=== PATIENT | female | born 1945 | race Caucasian/White ===

== ENCOUNTER → 2016-08-17 | Outpatient (CLI) | payer MEDICARE, OTHER ==
--- NOTE | 2016-08-17 15:56 | CARD ---
APPROVED REPORT EXAM: Two-dimensional and M-mode echocardiogram with Doppler and color Doppler. Other Information Quality : ExcellentHR: 60bpm Rhythm : NSR INDICATION Valvular heart disease RISK FACTORS Hypertension 2D DIMENSIONS RVDd1.7 (2.9-3.5cm)Left Atrium(2D)3.3 (1.6-4.0cm) IVSd1.0 (0.7-1.1cm)Aortic Root(2D)2.7 (2.0-3.7cm) LVDd3.7 (3.9-5.9cm)LVOT Diameter2.1 (1.8-2.4cm) PWd1.0 (0.7-1.1cm)LVDs2.7 (2.5-4.0cm) FS (%) 27.0 %SV31.7 ml LVEF(%)53.4 (>50%) Aortic Valve AoV Peak Jose.318.5cm/sAoV VTI76.1cm AO Peak GR.40.6mmHgLVOT Peak Jose.99.7cm/s AO Mean GR.22mmHgAVA (VMAX)1.05cm2 Mitral Valve MV E Smhbtzuy69.8cm/sMV E Peak Gr.2mmHg MV DECEL [id number] A Fuhnkjeu65.6cm/s MV E Mean Gr.1mmHgE/A Ratio0.7 Pulmonary Valve PV Peak Glqhzymk65.1cm/s Tricuspid Valve TR P. Mhchaozf081ad/sTR Peak Gr.28mmHg Pulmonary Vein S1 Myovyurh70.0cm/sD2 Xlgfcplz43.0cm/s PVa zzvebyup04jpfw LEFT VENTRICLE The left ventricle is normal size. There is normal left ventricular wall thickness. The left ventricu lar systolic function is normal and the ejection fraction is low normal. The Ejection Fraction is 50- 55%. There is normal LV segmental wall motion. Transmitral Doppler flow pattern is Grade I-abnormal r elaxation pattern. RIGHT VENTRICLE The right ventricle is normal size. There is normal right ventricular wall thickness. The right ventr icular systolic function is normal. ATRIA The left atrium is mildly dilated. The right atrium size is normal. The interatrial septum is intact with no evidence for an atrial septal defect or patent foramen ovale as noted on 2-D or Doppler imagi ng. AORTIC VALVE The aortic valve is moderately sclerotic. Doppler and Color Flow revealed no significant aortic regur gitation. There is moderate valvular aortic stenosis. Calculated aortic valve area is 1.05 cm2 with m aximum pressure gradient of 40.57 mmHg and mean pressure gradient of 22.46 mmHg. MITRAL VALVE Mitral annular calcification is mild. There is no evidence of mitral valve prolapse. There is no mitr al valve stenosis. Doppler and Color Flow revealed trace mitral regurgitation. TRICUSPID VALVE The tricuspid valve is normal in structure and function. Doppler and Color Flow revealed moderate tri cuspid regurgitation. The pulmonary artery systolic pressure is estimated at 33 mmHg. There is mild p ulmonary hypertension. There is no tricuspid valve stenosis. PULMONIC VALVE The pulmonary valve is normal in structure and function. Doppler and Color Flow revealed mild pulmoni c valvular regurgitation. There is no pulmonic valvular stenosis. GREAT VESSELS The aortic root is normal in size. The ascending aorta is normal in size. The IVC is normal in size a nd collapses >50% with inspiration. PERICARDIAL EFFUSION There is no evidence of significant pericardial effusion. Critical Notification Critical Value: No <Conclusion> The left ventricular systolic function is normal and the ejection fraction is low normal. The Ejectio n Fraction is 50-55%. There is normal LV segmental wall motion. There is moderate valvular aortic stenosis. Calculated aortic valve area is 1.05 cm2 with maximum pr essure gradient of 40.57 mmHg and mean pressure gradient of 22.46 mmHg. Doppler and Color Flow revealed moderate tricuspid regurgitation. The pulmonary artery systolic press ure is estimated at 33 mmHg. There is mild pulmonary hypertension.
== END | disposition home or self-care (01) ==
LOC: ECHO 12:42
PROVIDERS: ATTEND Internal Medicine Cardiovascular Disease
DX: I35.0 Nonrheumatic aortic (valve) stenosis (principal); I38 Endocarditis, valve unspecified; I35.8 Other nonrheumatic aortic valve disorders; I34.8 Other nonrheumatic mitral valve disorders; I34.0 Nonrheumatic mitral (valve) insufficiency; I07.1 Rheumatic tricuspid insufficiency; I27.2 Other secondary pulmonary hypertension; I37.1 Nonrheumatic pulmonary valve insufficiency
CPT/HCPCS: 93306

== ENCOUNTER → 2018-03-28 | Outpatient (CLI) | payer MEDICARE, OTHER ==
--- NOTE | 2018-03-28 16:16 | CARD ---
MR#: [id number] Date of Study: 03/28/2018 Ordering Physician: SUDHAKAR NORTON, Referring Physician: SUDHAKAR NORTON, Tech: AURORA Royal APPROVED REPORT EXAM: Two-dimensional and M-mode echocardiogram with Doppler and color Doppler. Other Information Quality : AverageHR: 63bpm INDICATION Aortic Stenosis RISK FACTORS Hypertension 2D DIMENSIONS Left Atrium(2D)3.1 (1.6-4.0cm)IVSd1.0 (0.7-1.1cm) Aortic Root(2D)2.7 (2.0-3.7cm)LVDd4.5 (3.9-5.9cm) LVOT Diameter1.8 (1.8-2.4cm)PWd0.9 (0.7-1.1cm) LVDs2.8 (2.5-4.0cm)FS (%) 38.0 % SV61.7 ml Aortic Valve AoV Peak Jose.285.3cm/sAoV VTI73.9cm AO Peak GR.32.6mmHgLVOT Peak Jose.67.7cm/s LVOT VTI 18.83cmAO Mean GR.21mmHg JUSTIN (VMAX)0.02tk3EJT (VTI)0.63cm2 Mitral Valve MV E Tfeervqf95.5cm/sMV DECEL BTPR510lg MV A Jjveccdg84.2cm/sMV BZL87yy E/A Ratio0.8MVA (PHT)4.52cm2 TDI E/Lateral E'9.5E/Medial E'13.9 Pulmonary Valve PV Peak Xmfvnylo00.2cm/sPV Peak Grad.2mmHg Tricuspid Valve TR P. Rcmykxkz870rp/sTR Peak Gr.18mmHg Pulmonary Vein S1 Tdbabqkh68.3cm/sD2 Juyzsxot16.2cm/s LEFT VENTRICLE The left ventricle is normal size. There is normal left ventricular wall thickness. The left ventricu lar systolic function is normal and the ejection fraction is within normal range. The Ejection Fracti on is 55-60%. There is normal LV segmental wall motion. The left ventricular diastolic function and f illing is normal for age. RIGHT VENTRICLE The right ventricle is normal size. The right ventricular systolic function is normal. ATRIA The left atrium size is normal. The right atrium size is normal. The interatrial septum is intact wit h no evidence for an atrial septal defect or patent foramen ovale as noted on 2-D or Doppler imaging. AORTIC VALVE The aortic valve is moderately thickened. Doppler and Color Flow revealed no significant aortic regur gitation. There is no significant aortic valve stenosis. There is moderate valvular aortic stenosis. Aortic valve area with a maximum pressure gradient of 36.8 mmHg and mean pressure gradient of 20.8 mm Hg. There is no aortic valvular vegetation. MITRAL VALVE The mitral valve is moderately thickened. There is no evidence of mitral valve prolapse. There is no mitral valve stenosis. Doppler and Color Flow revealed mild mitral valve regurgitation. TRICUSPID VALVE The tricuspid valve leaflets are thickened , but open well. Doppler and Color Flow revealed mild tric uspid regurgitation. There is no tricuspid valve prolapse or vegetation. There is no tricuspid valve stenosis. PULMONIC VALVE The pulmonic valve is not well visualized. Doppler and Color Flow revealed no pulmonic valvular regur gitation. There is no pulmonic valvular stenosis. GREAT VESSELS The aortic root is normal in size. The IVC is normal in size and collapses >50% with inspiration. PERICARDIAL EFFUSION There is no pleural effusion. There is no evidence of significant pericardial effusion. Critical Notification Critical Value: No <Conclusion> The left ventricle is normal size. The left ventricular systolic function is normal and the ejection fraction is within normal range. The Ejection Fraction is 55-60%. The aortic valve is moderately thickened. There is moderate valvular aortic stenosis. Aortic valve area with a maximum pressure gradient of 36.8 mmHg and mean pressure gradient of 20.8 mm Hg. Doppler and Color Flow revealed no significant aortic regurgitation. Doppler and Color Flow revealed mild mitral valve regurgitation. Doppler and Color Flow revealed mild tricuspid regurgitation. Signed by : Sudhakar Norton MD Electronically Approved : 03/28/2018 16:15:52
== END | disposition home or self-care (01) ==
LOC: ECHO 13:28
PROVIDERS: ATTEND Internal Medicine Cardiovascular Disease
DX: I08.3 Combined rheumatic disorders of mitral, aortic and tricuspid valves (principal)
CPT/HCPCS: 93306

== ENCOUNTER 2018-10-20 18:48 | Inpatient (IN) | payer MEDICARE, OTHER ==
[~2018-10-20] VITALS: Ht 160 cm; Wt 55.4 kg
--- NOTE | 2018-10-20 19:50 | PHYS DOC ---
Past Medical History Past Medical History: Cancer (breast cancer in 2000), Hypertension Alcohol Use: None Drug Use: None Adult General Chief Complaint Chief Complaint: NEURO SYMPTOMS/DEFICITS HPI HPI Patient is a 72 year old female who presents with left-sided facial weakness that began yesterday at approximately 1700. Patient was swishing mouthwash and noticed that was leaking out of the left side of her mouth. She also notes a left-sided occipital headache. Not worst headache of life. No trauma. She is able to swallow. No chest pain or palpitations. Nothing seems to make the symptoms better or worse. She also notes that there is tearing of her left eye as well. No visual changes.[] Review of Systems Review of Systems Constitutional: Denies fever or chills [] Eyes: Denies change in visual acuity, redness, or eye pain [] HENT: Denies nasal congestion or sore throat [] Respiratory: Denies cough or shortness of breath [] Cardiovascular: No chest pain or palpitations[] GI: Denies abdominal pain, nausea, vomiting, bloody stools or diarrhea [] : Denies dysuria or hematuria [] Musculoskeletal: Denies back pain or joint pain [] Integument: Denies rash or skin lesions [] Neurologic: see HPI [] Endocrine: Denies polyuria or polydipsia [] All other systems were reviewed and found to be within normal limits, except as documented in this note. Current Medications Current Medications Current Medications Medications (Trade) Dose Ordered Sig/Evan Start Time Stop Time Status Last Admin Dose Admin Aspirin (Aspirin) 300 mg 1X STAT 10/20/18 20:30 10/20/18 20:32 DC 10/20/18 20:47 300 MG Allergies Allergies Allergies Coded Allergies Type Severity Reaction Last Updated Verified shellfish derived Allergy Unknown 10/20/18 Yes Physical Exam Physical Exam Constitutional: Well developed, well nourished, no acute distress, non-toxic appearance. [] HENT: Normocephalic, atraumatic, bilateral external ears normal, oropharynx moist, no oral exudates, nose normal. [] Eyes: PERRLA, EOMI, conjunctiva normal, no discharge. [] Neck: Normal range of motion, no tenderness, supple, no stridor. [] Cardiovascular:Heart rate regular rhythm, no murmur [] Lungs & Thorax: Bilateral breath sounds clear to auscultation [] Abdomen: Bowel sounds normal, soft, no tenderness, no masses, no pulsatile masses. [] Skin: Warm, dry, no erythema, no rash. [] Back: No tenderness, no CVA tenderness. [] Extremities: No tenderness, no cyanosis, no clubbing, ROM intact, no edema. [] Neurologic: Alert and oriented X 3, patient has left-sided facial weakness with the forehead being spared, NIHSS is 3, 2 points for lower face asymmetry and 1 point for decreased sensation in the L face[] Psychologic: Affect normal, judgement normal, mood normal. [] Current Patient Data Vital Signs Vital Signs Date Time Temp Pulse Resp B/P (MAP) Pulse Ox O2 Delivery O2 Flow Rate FiO2 10/20/18 19:48 74 16 96 10/20/18 19:35 97.7 191/79 (116) Room Air 97.7 Lab Values Laboratory Tests Test 10/20/18 19:40 White Blood Count 10.5 x10^3/uL (4.0-11.0) Red Blood Count 4.66 x10^6/uL (3.50-5.40) Hemoglobin 13.2 g/dL (12.0-15.5) Hematocrit 40.1 % (36.0-47.0) Mean Corpuscular Volume 86 fL (79-100) Mean Corpuscular Hemoglobin 28 pg (25-35) Mean Corpuscular Hemoglobin Concent 33 g/dL (31-37) Red Cell Distribution Width 14.1 % (11.5-14.5) Platelet Count 346 x10^3/uL (140-400) Neutrophils (%) (Auto) 62 % (31-73) Lymphocytes (%) (Auto) 23 % (24-48) L Monocytes (%) (Auto) 12 % (0-9) H Eosinophils (%) (Auto) 2 % (0-3) Basophils (%) (Auto) 1 % (0-3) Neutrophils # (Auto) 6.5 x10^3uL (1.8-7.7) Lymphocytes # (Auto) 2.4 x10^3/uL (1.0-4.8) Monocytes # (Auto) 1.2 x10^3/uL (0.0-1.1) H Eosinophils # (Auto) 0.2 x10^3/uL (0.0-0.7) Basophils # (Auto) 0.1 x10^3/uL (0.0-0.2) Prothrombin Time 12.3 SEC (11.7-14.0) Prothrombin Time INR 0.9 (0.8-1.1) Sodium Level 143 mmol/L (136-145) Potassium Level 3.0 mmol/L (3.5-5.1) L Chloride Level 103 mmol/L (98-107) Carbon Dioxide Level 29 mmol/L (21-32) Anion Gap 11 (6-14) Blood Urea Nitrogen 11 mg/dL (7-20) Creatinine 0.8 mg/dL (0.6-1.0) Estimated GFR (Cockcroft-Gault) 70.5 BUN/Creatinine Ratio 14 (6-20) Glucose Level 122 mg/dL (70-99) H Calcium Level 9.5 mg/dL (8.5-10.1) Magnesium Level 2.0 mg/dL (1.8-2.4) Total Bilirubin 0.3 mg/dL (0.2-1.0) Aspartate Amino Transferase (AST) 27 U/L (15-37) Alanine Aminotransferase (ALT) 34 U/L (14-59) Alkaline Phosphatase 93 U/L (46-116) Troponin I Quantitative < 0.017 ng/mL (0.000-0.055) Total Protein 7.5 g/dL (6.4-8.2) Albumin 3.4 g/dL (3.4-5.0) Albumin/Globulin Ratio 0.8 (1.0-1.7) L Thyroid Stimulating Hormone (TSH) 2.013 uIU/mL (0.358-3.74) Laboratory Tests 10/20/18 19:40 Laboratory Tests 10/20/18 19:40 EKG EKG EKG shows a sinus rhythm at 64 bpm, leftward axis at -10, QTC 435 ms, no ST elevations, interpreted by ma at 2034[] Radiology/Procedures Radiology/Procedures PORTABLE CHEST 1V Clinical History: STROKE SYMPTOMS Technique: AP view of the chest was obtained at 10/20/2018 7:35 PM. Comparison: None. Findings: The cardiomediastinal silhouette is normal. The pulmonary vasculature is normal. The lungs and pleural margins are clear. There is evidence of prior left mastectomy and axillary node dissection. Impression: No evidence of an acute cardiopulmonary process. CT Head W/O Contrast: History: left-sided facial droop Comparison: none Axial images were obtained without contrast. There is moderate diffuse atrophy. There is no mass effect, extraaxial fluid collections or hydrocephalus. There is no focal loss of morse-white matter distinction to suggest acute ischemia, i.e. stroke. Impression: No acute findings. [] Course & Med Decision Making Course & Med Decision Making Pertinent Labs and Imaging studies reviewed. (See chart for details) ED course: Patient arrived, was placed in bed, and tolerated exam well. She was transported to and from [place] with any complications. After return of lab and imaging findings, these were discussed with the patient and family voiced understanding. Consultation was made with the hospitalist service for admission and further evaluation. Given that the symptoms are greater than 24 hours out and of low NIH score, patient does not qualify for thrombolytic therapy. She was given aspirin rectally due to the facial symptoms. Patient was admitted in improved condition. Medical decision making: Concerned that the patient had a stroke over 24 hours ago. This does not appear to be Hood's palsy given that there is symmetric movement of the for head, along with her age. There is no evidence of a significant electrolyte abnormality. No evidence of intracranial mass or bleed.[ ] Dragon Disclaimer Dragon Disclaimer This electronic medical record was generated, in whole or in part, using a voice recognition dictation system. Departure Departure Impression: Primary Impression: Stroke Disposition: ADMITTED INPATIENT Admitting Physician: Cortes Aquino Condition: IMPROVED Referrals: DIANA PEREZ MD (PCP) Problem Qualifiers Primary Impression: Stroke CVA mechanism: unspecified Qualified Codes: I63.9 - Cerebral infarction, unspecified GAYE BLAKE DO Oct 20, 2018 19:50
[2018-10-20 19:53] LABS: BASO # 0.1 x10^3/uL (0.0-0.2); BASO % 1 % (0-3); EOS # 0.2 x10^3/uL (0.0-0.7); EOS % 2 % (0-3); HEMATOCRIT 40.1 % (36.0-47.0); HEMOGLOBIN 13.2 g/dL (12.0-15.5); LYMPH # 2.4 x10^3/uL (1.0-4.8); LYMPH % 23 % (24-48); MEAN CORPUSCULAR HEMOGLOBIN 28 pg (25-35); MEAN CORPUSCULAR HGB CONC 33 g/dL (31-37); MEAN CORPUSCULAR VOLUME 86 fL (79-100); MONO # 1.2 x10^3/uL (0.0-1.1); MONO % 12 % (0-9); NEUT # 6.5 x10^3uL (1.8-7.7); NEUT % 62 % (31-73); PLATELET COUNT 346 x10^3/uL (140-400); RED BLOOD COUNT 4.66 x10^6/uL (3.50-5.40); RED CELL DISTRIBUTION WIDTH 14.1 % (11.5-14.5); WHITE BLOOD COUNT 10.5 x10^3/uL (4.0-11.0)
[2018-10-20 20:06] LABS: PROTHROMBIN TIME PATIENT 12.3 SEC (11.7-14.0)
--- NOTE | 2018-10-20 20:10 | RAD ---
PORTABLE CHEST 1V Clinical History: STROKE SYMPTOMS Technique: AP view of the chest was obtained at 10/20/2018 7:35 PM. Comparison: None. Findings: The cardiomediastinal silhouette is normal. The pulmonary vasculature is normal. The lungs and pleural margins are clear. There is evidence of prior left mastectomy and axillary node dissection. Impression: No evidence of an acute cardiopulmonary process. Electronically signed by: Josh Funk III, MD (10/20/2018 8:06 PM) [facility]
[2018-10-20 20:14] LABS: ALBUMIN 3.4 g/dL (3.4-5.0); ALBUMIN/GLOBULIN RATIO 0.8 (1.0-1.7); CALCIUM 9.5 mg/dL (8.5-10.1); CREATININE 0.8 mg/dL (0.6-1.0); GFR 70.5; TOTAL BILIRUBIN 0.3 mg/dL (0.2-1.0); TOTAL PROTEIN 7.5 g/dL (6.4-8.2)
--- NOTE | 2018-10-20 20:20 | RAD ---
CT Head W/O Contrast: History: left-sided facial droop Comparison: none Axial images were obtained without contrast. There is moderate diffuse atrophy. There is no mass effect, extraaxial fluid collections or hydrocephalus. There is no focal loss of morse-white matter distinction to suggest acute ischemia, i.e. stroke. Impression: No acute findings. RS Compliance Statement: One or more of the following individualized dose reduction techniques were utilized for this examination: 1. Automated exposure control 2. Adjustment of the mA and/or kV according to patient size 3. Use of iterative reconstruction technique Electronically signed by: Josh Funk III, MD (10/20/2018 8:17 PM) [facility]
[2018-10-20] MEDS ORDERED: ASPIRIN RECTAL 300 MG SUPP. PR STA (20:30)
[2018-10-20 20:54] LABS: BILIRUBIN,URINE NEGATIVE (NEG); CLARITY,URINE CLEAR; COLOR,URINE YELLOW; NITRITE,URINE NEGATIVE (NEG); PROTEIN,URINE NEGATIVE (NEG-TRACE); UROBILINOGEN,URINE 0.2 mg/dL (0.2 mg/dL)
[2018-10-20] MEDS ORDERED: ONDANSETRON PF 4 MG/2 ML VIAL. IV PRN (21:00)
[2018-10-20 21:10] LABS: BACTERIA,URINE FEW /HPF (0-FEW); RBC,URINE OCC /HPF (0-2); WBC,URINE OCC /HPF (0-4)
[2018-10-20 21:11] LABS: SQUAMOUS EPITHELIAL CELL,UR MANY /LPF
[2018-10-20] MEDS: IV NORMAL SALINE 1000ML BAG 1,000 ML IV SCH (21:52)
[2018-10-20] MEDS ORDERED: SITA100T PO (22:13)
[2018-10-20] MEDS ORDERED: METF500T16 PO (22:13)
[2018-10-20] MEDS ORDERED: ATEN100T PO (22:13)
[2018-10-20] MEDS ORDERED: CRESTOR10 MG PO (22:13)
[2018-10-20] MEDS ORDERED: ASPI81TA50 PO (22:13)
[2018-10-20] MEDS ORDERED: OMEP20CA10 PO (22:13)
[2018-10-20] MEDS ORDERED: AMLO5TAB10 PO (22:13)
[2018-10-20 22:39] VITALS: BP 174/81
[2018-10-20] MEDS ORDERED: POLYVINYL ALCOHOL 1.4% OPHTH SOLUTION 15ML BOTTLE. OU PRN (23:15)
[2018-10-21] MEDS: valACYclovir 500 MG TABLET. PO SCH ×2 (00:25→08:19)
[2018-10-21] MEDS: predniSONE 10 MG TABLET PO SCH ×2 (00:26→08:19)
[2018-10-21 03:00] LABS: BASO # 0.1 x10^3/uL (0.0-0.2); BASO % 1 % (0-3); EOS # 0.1 x10^3/uL (0.0-0.7); EOS % 1 % (0-3); HEMATOCRIT 37.2 % (36.0-47.0); HEMOGLOBIN 12.3 g/dL (12.0-15.5); LYMPH # 1.3 x10^3/uL (1.0-4.8); LYMPH % 15 % (24-48); MEAN CORPUSCULAR HEMOGLOBIN 28 pg (25-35); MEAN CORPUSCULAR HGB CONC 33 g/dL (31-37); MEAN CORPUSCULAR VOLUME 86 fL (79-100); MONO # 0.4 x10^3/uL (0.0-1.1); MONO % 4 % (0-9); NEUT # 6.8 x10^3uL (1.8-7.7); NEUT % 79 % (31-73); PLATELET COUNT 307 x10^3/uL (140-400); RED BLOOD COUNT 4.34 x10^6/uL (3.50-5.40); RED CELL DISTRIBUTION WIDTH 13.9 % (11.5-14.5); WHITE BLOOD COUNT 8.6 x10^3/uL (4.0-11.0)
[2018-10-21 03:11] LABS: CALCIUM 8.5 mg/dL (8.5-10.1); CREATININE 0.6 mg/dL (0.6-1.0); GFR 98.3; POTASSIUM 3.3 mmol/L (3.5-5.1)
[2018-10-21 03:55] VITALS: BP 148/79
--- NOTE | 2018-10-21 04:27 | NUR ---
Patient was evaluated by Dr. 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 This nurse evaluated patient swallow and no aspiration upon auscultation.
--- NOTE | 2018-10-21 05:29 | CONS ---
DATE OF CONSULTATION: 10/20/2018 REFERRING PHYSICIAN: Dr. Reid REASON FOR CONSULTATION: Left facial weakness. HISTORY OF PRESENT ILLNESS: The patient is a very pleasant 72-year-old woman who began to have left facial weakness yesterday around 5:00 p.m. She was swishing a mouthwash around in her mouth when she noticed it leaking out of the left side. She has also had some headache on the left side. She has had a cold for which she received amoxicillin. This helped her cough and her chest, but her ear has been feeling kind of full. She has not had a rash about her ear or face. She has had some stinging and burning of her left eye. She has not had weakness of the arms or leg. There has been no loss of sensation. Her throat is a little sore, but she has been able to swallow without difficulty. PAST MEDICAL HISTORY: 1. Breast cancer in 2000. 2. Hypertension. 3. Diabetes. 4. Hyperlipidemia. 5. Gastroesophageal reflux. ALLERGIES: SHELLFISH. MEDICINES: Prior to admission, amlodipine 5 mg, aspirin 81 mg, atenolol 100 mg, metformin 500 mg twice per day with meals, omeprazole 20 mg, rosuvastatin 10 mg, and Januvia 100 mg. FAMILY HISTORY: Noncontributory. SOCIAL HISTORY: She is . She does not smoke tobacco or drink alcohol. REVIEW OF SYSTEMS: She has a minor headache. She has had some burning of her left eye. She has had diminished hearing and fullness of her left ear. She has had some soreness in her throat. She has not had shortness of breath. She had chest pain associated with a cough, but it is better. She does not have abdominal pain. She does not have bone or joint pain. There has been no fever or rash. Has had some loose stools with the antibiotic. She does not have any genitourinary complaint. She does not complain of numbness or weakness. She does not complain of easy bruising, bleeding or swelling. She does not have any psychiatric concerns. PHYSICAL EXAMINATION: VITAL SIGNS: The blood pressure was 174/81, pulse 74, respirations 20, temperature 97.6 degrees axillary Fahrenheit. Oximetry was 93% on room air. Her weight was 115 pounds, height 56 inches with a body mass index of 25.8. NEUROLOGIC: She was alert, awake, and cooperative. Speech was fluent and clear. She had a good fund of recent and remote knowledge. Attention and concentration was intact. She appeared well groomed and well nourished. She was fully oriented. Examination of the cranial nerves revealed visual lennon were full to confrontation. Extraocular movements were intact. The eyes were conjugate. Pursuit movements were smooth and saccadic eye movements were without dysmetria. Pupils were 3 mm and reactive. Funduscopic exam did not reveal papilledema, exudate, or hemorrhage. Facial sensation was intact bilaterally. The muscles of mastication were powerful symmetrically. Muscles of facial expression were powerful on the right. She had weakness with left smile and weakness with left eye closure and eyebrow furrow. I was easily able to open her eye despite all her effort to keep her left eye closed. Right eye was not able to open when she tried to keep it closed. Hearing was intact to finger rub, although she felt she did not hear as much with the left ear. The palate arched symmetrically and the tongue was midline with full range of motion. Sternocleidomastoid and trapezius were powerful. Muscle bulk and tone were normal. There was no arm or leg drift. Power was full and symmetric in the upper and lower extremities. Reflexes were 2/4 in the upper extremities and trace at the knees and ankles. Toes were not upgoing. Coordination testing with nzipqb-pf-axgk, dnll-tg-mqkj, fine motor, and rapid alternating movements was well performed. The sensory exam was intact to pain, light touch, proprioception, graphesthesia, cold thermal, and vibration. There was no extinction to double simultaneous stimulation. Gait was a normal base and steady. She could heel and toe walk. Romberg stance was negative. Auscultation of the carotid arteries did not reveal a bruit. Heart rhythm is regular with a systolic ejection murmur. LABORATORY AND DIAGNOSTIC DATA: Review of laboratory data: CBC revealed a normal white blood cell count, hemoglobin, hematocrit, and platelet count. Chemistries revealed normal sodium, but potassium was low at 3. Chloride and CO2 were normal, BUN and creatinine were normal with a calculated GFR of 70.5. Glucose was elevated to 122. Calcium, magnesium, total protein, and albumin were normal. Liver enzymes were not elevated. Troponin was not elevated. TSH was normal. Urinalysis revealed occasional white cells and red cells and many squamous epithelial cells and a few bacteria. PT/INR was 0.9. A CT scan of the head was performed without contrast on 10/20/2018. There were no acute findings. Chest x-ray was performed on 10/20/2018, which revealed no acute cardiopulmonary process. IMPRESSION: The patient is a very pleasant 72-year-old woman with a peripheral left facial weakness. 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 This does not represent a central nervous system process or stroke. The rest of the neurologic exam was normal except for some diminished reflexes in legs, which may be due to peripheral neuropathy from diabetes. She still has preservation of most of her sensation. RECOMMENDATIONS: I ordered artificial tears for the eyes because of the burning and stinging in the eyes due to irritation due to it drying out because she is not closing it completely. We will patch the eye at night and I instructed the nurse how to do this. We will order prednisone 50 mg a day for 7 days, as well as an anti-herpes antibiotic for 7 days. I appreciate being involved in her care. SARA MIGUEL MD DR: CT/amarjit JOB#: [id number] / [id number] JUANITO Andre MD, FERILYN MD
[2018-10-21 07:05] VITALS: BP 139/79
[2018-10-21] MEDS: IV NORMAL SALINE 1000ML BAG 1,000 ML IV SCH (08:18)
--- NOTE | 2018-10-21 09:06 | EKG ---
[facility] [address] [place] [address] Test Date: 2018-10-20 Test Time: 20:27:00 Pat Name: NICOLE GOMEZ Department: Room: 6 1 Gender: F Scheduling Assistant: : 1945 Requested By: GAYE BLAKE Order Number: [id number] Reading MD: Bert Arevalo MD Measurements Intervals [place] Rate: 64 P: 23 FL: 128 QRS: -10 QRSD: 86 T: 26 QT: 422 QTc: 435 Interpretive Statements SINUS RHYTHM NON-SPECIFIC ST/T CHANGES Electronically Signed On 10-21-2018 11:08:28 CDT by Bert Arevalo MD
[2018-10-21] MEDS ORDERED: VALA500T PO (09:52)
[2018-10-21] MEDS ORDERED: POLY15DR27 OU (09:52)
[2018-10-21] MEDS ORDERED: PRED-220 PO (09:52)
[2018-10-21] MEDS ORDERED: ONDANSETRON ODT 4 MG TAB.RAPDIS. PO PRN (10:00)
[2018-10-21] MEDS ORDERED: ACETAMINOPHEN/CODEINE 300/30MG TABLET. PO PRN (10:00)
[2018-10-21] MEDS ORDERED: DEXTROSE 50% 25 GM / 50ML DISP.SYRIN. IV PRN (10:00)
[2018-10-21] MEDS ORDERED: ONDANSETRON PF 4 MG/2 ML VIAL. IV PRN (10:00)
[2018-10-21] MEDS ORDERED: ACETAMINOPHEN 500 MG TABLET PO PRN (10:00)
--- NOTE | 2018-10-21 11:55 | NUR ---
SW following pt for anticipated dc needs. Chart reviewed and discussed with RN. Pt lives at home with spouse and on room air. PT/OT pending. RN reported pt does well with ADL's and does not need skilled intervention.
[2018-10-21 11:59] VITALS: BP 142/70
[2018-10-21] MEDS ORDERED: INSULIN LISPRO 300 UNITS/3 ML INSULN.PEN. SQ SCH (12:00)
--- NOTE | 2018-10-21 12:55 | PDOC1 ---
History and Physical Date of Admission Date of Admission DATE: 10/21/18 TIME: 12:51 Identification/Chief Complaint Chief Complaint Acute onset left sided eye droop and facial droop Source Source: Caregiver, Chart review, Patient History of Present Illness History of Present Illness Very pleasant 72-year-old white female with no assistive device, lives at home with family, Sunday acute onset of left-sided facial droop and left-sided drooping of the left eye. No other symptoms. Neuro exam is nonfocal. Admitted henceforth. Blood pressure good, blood work negative. 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 Seen by neurology again today. Patient will be more comfortable having an MRI done. Ordering that. Otherwise if negative can go home today with prednisone and valacyclovir all on chart Discussed with multiple family members at bedside and RN Past Medical History Endocrine: Diabetes Past Surgical History Past Surgical History: No pertinent history Family History Family History: No Significant Social History Smoke: No ALCOHOL: none Drugs: None Current Problem List Problem List Problems Medical Problems: (1) Stroke Status: Acute Current Medications Current Medications Current Medications Aspirin (Aspirin) 300 mg 1X STAT ND Last administered on 10/20/18at 20:47; Start 10/20/18 at 20:30; Stop 10/20/18 at 20:32; Status DC Ondansetron HCl (Zofran) 4 mg PRN Q8HRS PRN IV NAUSEA/VOMITING; Start 10/20/18 at 21:00; Stop 10/21/18 at 20:59 Sodium Chloride 1,000 ml @ 100 mls/hr Q10H IV Last administered on 10/21/18at 08:18; Start 10/20/18 at 21:00; Stop 10/21/18 at 20:59 Artificial Tears (Artificial Tears) 1 drop PRN Q15MIN PRN OU DRY EYE Last administered on 10/21/18at 00:30; Start 10/20/18 at 23:15 Prednisone (Prednisone) 50 mg DAILY PO Last administered on 10/21/18 08:19; Start 10/20/18 at 23:30; Stop 10/26/18 at 23:29 Valacyclovir HCl (Valtrex) 1,000 mg BID PO Last administered on 3/25/19at 08:19 ; Start 10/20/18 at 23:30; Stop 10/26/18 at 23:29 Acetaminophen (Tylenol) 500 mg PRN Q6HRS PRN PO MILD PAIN / TEMP; Start at 10:00 Acetaminophen/ Codeine Phosphate (Tylenol #3) 1 tab PRN Q6HRS PRN PO MODERATE PAIN; Start 10/21/18 at 10:00 Ondansetron HCl (Zofran) 4 mg PRN Q6HRS PRN IV NAUSEA/VOMITING; Start 10/21/18 at 10:00 Ondansetron HCl (Zofran Odt) 4 mg PRN Q6HRS PRN PO NAUSEA/VOMITING; Start 10/21 at 10:00 Insulin Human Lispro (HumaLOG) 0-7 UNITS TIDWMEALS SQ Last administered on 10/21at 12:22; Start 10/21/18 at 12:00 Dextrose (Dextrose 50%-Water Syringe) 12.5 gm PRN Q15MIN PRN IV SEE COMMENTS; Start 10/21/18 at 10:00 Active Scripts Active Prednisone (Prednisone) 10 Mg Tablet 50 Mg PO DAILY MDD 1 7 Days Artificial Tears (Polyvinyl Alcohol) 15 Ml Drops 1 Drop OU PRN Q15MIN PRN MDD 1 7 Days Valacyclovir (Valacyclovir Hcl) 500 Mg Tablet 1,000 Mg PO BID MDD 1 Reported Aspir-Low (Aspirin) 81 Mg Tablet. 81 Mg PO DAILY Omeprazole 20 Mg Capsule. 20 Mg PO DAILY Atenolol 100 Mg Tablet 100 Mg PO DAILY Januvia (Sitagliptin Phosphate) 100 Mg Tablet 100 Mg PO DAILY Amlodipine Besylate 5 Mg Tablet 5 Mg PO DAILY Metformin Hcl 500 Mg Tablet 500 Mg PO BIDWMEALS Crestor (Rosuvastatin Calcium) 10 Mg Tablet 10 Mg PO DAILY Allergies Allergies: Coded Allergies: shellfish derived (Verified Allergy, Unknown, 10/20/18) ROS Review of System As per history of present illness, the rest of ROS 14 point negative Physical Exam General: No acute distress HEENT: Atraumatic, PERRLA, Mucous membr. moist/pink, Other (left shallow nasolabial fold, really unable to appreciate left drooping of the high 80s) Lungs: Clear to auscultation, Normal air movement Heart: S1S2, RRR, no thrills, no rubs, no gallops, no murmurs Cardiovascular: S1, S2 Breasts: Normal, Rt breast nml w/o mass, Lt breast nml w/o mass, Nipples normal Abdomen: Normal bowel sounds, Soft, No tenderness, No hepatosplenomegaly, No masses Rectal Exam: not examined PELVIC: Nml ext genitalia Extremities: No clubbing, No cyanosis, No edema, Normal pulses, No tenderness/ swelling Skin: No rashes, No breakdown, No significant lesion Neuro: Normal gait, Normal speech, Strength at 5/5 X4 ext, Normal tone, Sensation intact, Cranial nerves 3-12 NL, Reflexes 2+ Psych/Mental Status: Mental status NL, Mood NL Vitals Vitals Vital Signs Date Time Temp Pulse Resp B/P (MAP) Pulse Ox O2 Delivery O2 Flow Rate FiO2 10/21/18 11:59 97.7 99 19 142/70 (94) 95 Room Air 97.7 Labs Labs Laboratory Tests Test 10/20/18 19:40 10/20/18 20:43 10/21/18 02:45 10/21/18 07:05 White Blood Count 10.5 x10^3/uL (4.0-11.0) 8.6 x10^3/uL (4.0-11.0) Red Blood Count 4.66 x10^6/uL (3.50-5.40) 4.34 x10^6/uL (3.50-5.40) Hemoglobin 13.2 g/dL (12.0-15.5) 12.3 g/dL (12.0-15.5) Hematocrit 40.1 % (36.0-47.0) 37.2 % (36.0-47.0) Mean Corpuscular Volume 86 fL (79-100) 86 fL (79-100) Mean Corpuscular Hemoglobin 28 pg (25-35) 28 pg (25-35) Mean Corpuscular Hemoglobin Concent 33 g/dL (31-37) 33 g/dL (31-37) Red Cell Distribution Width 14.1 % (11.5-14.5) 13.9 % (11.5-14.5) Platelet Count 346 x10^3/uL (140-400) 307 x10^3/uL (140-400) Neutrophils (%) (Auto) 62 % (31-73) 79 % (31-73) Lymphocytes (%) (Auto) 23 % (24-48) 15 % (24-48) Monocytes (%) (Auto) 12 % (0-9) 4 % (0-9) Eosinophils (%) (Auto) 2 % (0-3) 1 % (0-3) Basophils (%) (Auto) 1 % (0-3) 1 % (0-3) Neutrophils # (Auto) 6.5 x10^3uL (1.8-7.7) 6.8 x10^3uL (1.8-7.7) Lymphocytes # (Auto) 2.4 x10^3/uL (1.0-4.8) 1.3 x10^3/uL (1.0-4.8) Monocytes # (Auto) 1.2 x10^3/uL (0.0-1.1) 0.4 x10^3/uL (0.0-1.1) Eosinophils # (Auto) 0.2 x10^3/uL (0.0-0.7) 0.1 x10^3/uL (0.0-0.7) Basophils # (Auto) 0.1 x10^3/uL (0.0-0.2) 0.1 x10^3/uL (0.0-0.2) Prothrombin Time 12.3 SEC (11.7-14.0) Prothromb Time International Ratio 0.9 (0.8-1.1) Sodium Level 143 mmol/L (136-145) 145 mmol/L (136-145) Potassium Level 3.0 mmol/L (3.5-5.1) 3.3 mmol/L (3.5-5.1) Chloride Level 103 mmol/L (98-107) 106 mmol/L (98-107) Carbon Dioxide Level 29 mmol/L (21-32) 26 mmol/L (21-32) Anion Gap 11 (6-14) 13 (6-14) Blood Urea Nitrogen 11 mg/dL (7-20) 10 mg/dL (7-20) Creatinine 0.8 mg/dL (0.6-1.0) 0.6 mg/dL (0.6-1.0) Estimated GFR (Cockcroft-Gault) 70.5 98.3 BUN/Creatinine Ratio 14 (6-20) Glucose Level 122 mg/dL (70-99) 139 mg/dL (70-99) Calcium Level 9.5 mg/dL (8.5-10.1) 8.5 mg/dL (8.5-10.1) Magnesium Level 2.0 mg/dL (1.8-2.4) Total Bilirubin 0.3 mg/dL (0.2-1.0) Aspartate Amino Transf (AST/SGOT) 27 U/L (15-37) Alanine Aminotransferase (ALT/SGPT) 34 U/L (14-59) Alkaline Phosphatase 93 U/L (46-116) Troponin I Quantitative < 0.017 ng/mL (0.000-0.055) Total Protein 7.5 g/dL (6.4-8.2) Albumin 3.4 g/dL (3.4-5.0) Albumin/Globulin Ratio 0.8 (1.0-1.7) Thyroid Stimulating Hormone (TSH) 2.013 uIU/mL (0.358-3.74) Urine Collection Type Unknown Urine Color Yellow Urine Clarity Clear Urine pH 6.0 Urine Specific [place] 1.010 Urine Protein Negative mg/dL (NEG-TRACE) Urine Glucose (UA) Negative mg/dL (NEG) Urine Ketones (Stick) Negative mg/dL (NEG) Urine Blood Negative (NEG) Urine Nitrite Negative (NEG) Urine Bilirubin Negative (NEG) Urine Urobilinogen Dipstick 0.2 mg/dL (0.2 mg/dL) Urine Leukocyte Esterase Negative (NEG) Urine RBC Occ /HPF (0-2) Urine WBC Occ /HPF (0-4) Urine Squamous Epithelial Cells Many /LPF Urine Bacteria Few /HPF (0-FEW) Glucose (Fingerstick) 197 mg/dL (70-99) Test 10/21/18 12:03 Glucose (Fingerstick) 180 mg/dL (70-99) Laboratory Tests Test 10/20/18 19:40 10/20/18 20:43 10/21/18 02:45 10/21/18 07:05 White Blood Count 10.5 x10^3/uL (4.0-11.0) 8.6 x10^3/uL (4.0-11.0) Red Blood Count 4.66 x10^6/uL (3.50-5.40) 4.34 x10^6/uL (3.50-5.40) Hemoglobin 13.2 g/dL (12.0-15.5) 12.3 g/dL (12.0-15.5) Hematocrit 40.1 % (36.0-47.0) 37.2 % (36.0-47.0) Mean Corpuscular Volume 86 fL (79-100) 86 fL (79-100) Mean Corpuscular Hemoglobin 28 pg (25-35) 28 pg (25-35) Mean Corpuscular Hemoglobin Concent 33 g/dL (31-37) 33 g/dL (31-37) Red Cell Distribution Width 14.1 % (11.5-14.5) 13.9 % (11.5-14.5) Platelet Count 346 x10^3/uL (140-400) 307 x10^3/uL (140-400) Neutrophils (%) (Auto) 62 % (31-73) 79 % (31-73) Lymphocytes (%) (Auto) 23 % (24-48) 15 % (24-48) Monocytes (%) (Auto) 12 % (0-9) 4 % (0-9) Eosinophils (%) (Auto) 2 % (0-3) 1 % (0-3) Basophils (%) (Auto) 1 % (0-3) 1 % (0-3) Neutrophils # (Auto) 6.5 x10^3uL (1.8-7.7) 6.8 x10^3uL (1.8-7.7) Lymphocytes # (Auto) 2.4 x10^3/uL (1.0-4.8) 1.3 x10^3/uL (1.0-4.8) Monocytes # (Auto) 1.2 x10^3/uL (0.0-1.1) 0.4 x10^3/uL (0.0-1.1) Eosinophils # (Auto) 0.2 x10^3/uL (0.0-0.7) 0.1 x10^3/uL (0.0-0.7) Basophils # (Auto) 0.1 x10^3/uL (0.0-0.2) 0.1 x10^3/uL (0.0-0.2) Prothrombin Time 12.3 SEC (11.7-14.0) Prothromb Time International Ratio 0.9 (0.8-1.1) Sodium Level 143 mmol/L (136-145) 145 mmol/L (136-145) Potassium Level 3.0 mmol/L (3.5-5.1) 3.3 mmol/L (3.5-5.1) Chloride Level 103 mmol/L (98-107) 106 mmol/L (98-107) Carbon Dioxide Level 29 mmol/L (21-32) 26 mmol/L (21-32) Anion Gap 11 (6-14) 13 (6-14) Blood Urea Nitrogen 11 mg/dL (7-20) 10 mg/dL (7-20) Creatinine 0.8 mg/dL (0.6-1.0) 0.6 mg/dL (0.6-1.0) Estimated GFR (Cockcroft-Gault) 70.5 98.3 BUN/Creatinine Ratio 14 (6-20) Glucose Level 122 mg/dL (70-99) 139 mg/dL (70-99) Calcium Level 9.5 mg/dL (8.5-10.1) 8.5 mg/dL (8.5-10.1) Magnesium Level 2.0 mg/dL (1.8-2.4) Total Bilirubin 0.3 mg/dL (0.2-1.0) Aspartate Amino Transf (AST/SGOT) 27 U/L (15-37) Alanine Aminotransferase (ALT/SGPT) 34 U/L (14-59) Alkaline Phosphatase 93 U/L (46-116) Troponin I Quantitative < 0.017 ng/mL (0.000-0.055) Total Protein 7.5 g/dL (6.4-8.2) Albumin 3.4 g/dL (3.4-5.0) Albumin/Globulin Ratio 0.8 (1.0-1.7) Thyroid Stimulating Hormone (TSH) 2.013 uIU/mL (0.358-3.74) Urine Collection Type Unknown Urine Color Yellow Urine Clarity Clear Urine pH 6.0 Urine Specific [place] 1.010 Urine Protein Negative mg/dL (NEG-TRACE) Urine Glucose (UA) Negative mg/dL (NEG) Urine Ketones (Stick) Negative mg/dL (NEG) Urine Blood Negative (NEG) Urine Nitrite Negative (NEG) Urine Bilirubin Negative (NEG) Urine Urobilinogen Dipstick 0.2 mg/dL (0.2 mg/dL) Urine Leukocyte Esterase Negative (NEG) Urine RBC Occ /HPF (0-2) Urine WBC Occ /HPF (0-4) Urine Squamous Epithelial Cells Many /LPF Urine Bacteria Few /HPF (0-FEW) Glucose (Fingerstick) 197 mg/dL (70-99) Test 10/21/18 12:03 Glucose (Fingerstick) 180 mg/dL (70-99) VTE Prophylaxis Ordered VTE Prophylaxis Devices: Yes VTE Pharmacological Prophylaxi: Yes Assessment/Plan Assessment/Plan Hood's palsy rule out any acute CVA Plan: MRI today if negative than home with by mouth prednisone 507 days and valacyclovir 1000 twice a day for 7 days DEAN KENNEDY MD Oct 21, 2018 12:55
--- NOTE | 2018-10-21 12:56 | PDOC3 ---
Discharge Summary Visit Information Date of Admission: Oct 20, 2018 Date of Discharge: Oct 21, 2018 Admitting Diagnosis Comment: hood's palsy Final Diagnosis Problems Medical Problems: (1) Stroke Status: Acute Brief Hospital Course Allergies Allergies Coded Allergies Type Severity Reaction Last Updated Verified shellfish derived Allergy Unknown 10/20/18 Yes Vital Signs Vital Signs Date Time Temp Pulse Resp B/P (MAP) Pulse Ox O2 Delivery O2 Flow Rate FiO2 10/21/18 11:59 97.7 99 19 142/70 (94) 95 Room Air 97.7 Lab Results Laboratory Tests Test 10/20/18 19:40 10/20/18 20:43 10/21/18 02:45 10/21/18 07:05 White Blood Count 10.5 x10^3/uL (4.0-11.0) 8.6 x10^3/uL (4.0-11.0) Red Blood Count 4.66 x10^6/uL (3.50-5.40) 4.34 x10^6/uL (3.50-5.40) Hemoglobin 13.2 g/dL (12.0-15.5) 12.3 g/dL (12.0-15.5) Hematocrit 40.1 % (36.0-47.0) 37.2 % (36.0-47.0) Mean Corpuscular Volume 86 fL (79-100) 86 fL (79-100) Mean Corpuscular Hemoglobin 28 pg (25-35) 28 pg (25-35) Mean Corpuscular Hemoglobin Concent 33 g/dL (31-37) 33 g/dL (31-37) Red Cell Distribution Width 14.1 % (11.5-14.5) 13.9 % (11.5-14.5) Platelet Count 346 x10^3/uL (140-400) 307 x10^3/uL (140-400) Neutrophils (%) (Auto) 62 % (31-73) 79 % (31-73) Lymphocytes (%) (Auto) 23 % (24-48) 15 % (24-48) Monocytes (%) (Auto) 12 % (0-9) 4 % (0-9) Eosinophils (%) (Auto) 2 % (0-3) 1 % (0-3) Basophils (%) (Auto) 1 % (0-3) 1 % (0-3) Neutrophils # (Auto) 6.5 x10^3uL (1.8-7.7) 6.8 x10^3uL (1.8-7.7) Lymphocytes # (Auto) 2.4 x10^3/uL (1.0-4.8) 1.3 x10^3/uL (1.0-4.8) Monocytes # (Auto) 1.2 x10^3/uL (0.0-1.1) 0.4 x10^3/uL (0.0-1.1) Eosinophils # (Auto) 0.2 x10^3/uL (0.0-0.7) 0.1 x10^3/uL (0.0-0.7) Basophils # (Auto) 0.1 x10^3/uL (0.0-0.2) 0.1 x10^3/uL (0.0-0.2) Prothrombin Time 12.3 SEC (11.7-14.0) Prothromb Time International Ratio 0.9 (0.8-1.1) Sodium Level 143 mmol/L (136-145) 145 mmol/L (136-145) Potassium Level 3.0 mmol/L (3.5-5.1) 3.3 mmol/L (3.5-5.1) Chloride Level 103 mmol/L (98-107) 106 mmol/L (98-107) Carbon Dioxide Level 29 mmol/L (21-32) 26 mmol/L (21-32) Anion Gap 11 (6-14) 13 (6-14) Blood Urea Nitrogen 11 mg/dL (7-20) 10 mg/dL (7-20) Creatinine 0.8 mg/dL (0.6-1.0) 0.6 mg/dL (0.6-1.0) Estimated GFR (Cockcroft-Gault) 70.5 98.3 BUN/Creatinine Ratio 14 (6-20) Glucose Level 122 mg/dL (70-99) 139 mg/dL (70-99) Calcium Level 9.5 mg/dL (8.5-10.1) 8.5 mg/dL (8.5-10.1) Magnesium Level 2.0 mg/dL (1.8-2.4) Total Bilirubin 0.3 mg/dL (0.2-1.0) Aspartate Amino Transf (AST/SGOT) 27 U/L (15-37) Alanine Aminotransferase (ALT/SGPT) 34 U/L (14-59) Alkaline Phosphatase 93 U/L (46-116) Troponin I Quantitative < 0.017 ng/mL (0.000-0.055) Total Protein 7.5 g/dL (6.4-8.2) Albumin 3.4 g/dL (3.4-5.0) Albumin/Globulin Ratio 0.8 (1.0-1.7) Thyroid Stimulating Hormone (TSH) 2.013 uIU/mL (0.358-3.74) Urine Collection Type Unknown Urine Color Yellow Urine Clarity Clear Urine pH 6.0 Urine Specific [place] 1.010 Urine Protein Negative mg/dL (NEG-TRACE) Urine Glucose (UA) Negative mg/dL (NEG) Urine Ketones (Stick) Negative mg/dL (NEG) Urine Blood Negative (NEG) Urine Nitrite Negative (NEG) Urine Bilirubin Negative (NEG) Urine Urobilinogen Dipstick 0.2 mg/dL (0.2 mg/dL) Urine Leukocyte Esterase Negative (NEG) Urine RBC Occ /HPF (0-2) Urine WBC Occ /HPF (0-4) Urine Squamous Epithelial Cells Many /LPF Urine Bacteria Few /HPF (0-FEW) Glucose (Fingerstick) 197 mg/dL (70-99) Test 10/21/18 12:03 Glucose (Fingerstick) 180 mg/dL (70-99) Laboratory Tests Test 10/20/18 19:40 10/20/18 20:43 10/21/18 02:45 10/21/18 07:05 White Blood Count 10.5 x10^3/uL (4.0-11.0) 8.6 x10^3/uL (4.0-11.0) Red Blood Count 4.66 x10^6/uL (3.50-5.40) 4.34 x10^6/uL (3.50-5.40) Hemoglobin 13.2 g/dL (12.0-15.5) 12.3 g/dL (12.0-15.5) Hematocrit 40.1 % (36.0-47.0) 37.2 % (36.0-47.0) Mean Corpuscular Volume 86 fL (79-100) 86 fL (79-100) Mean Corpuscular Hemoglobin 28 pg (25-35) 28 pg (25-35) Mean Corpuscular Hemoglobin Concent 33 g/dL (31-37) 33 g/dL (31-37) Red Cell Distribution Width 14.1 % (11.5-14.5) 13.9 % (11.5-14.5) Platelet Count 346 x10^3/uL (140-400) 307 x10^3/uL (140-400) Neutrophils (%) (Auto) 62 % (31-73) 79 % (31-73) Lymphocytes (%) (Auto) 23 % (24-48) 15 % (24-48) Monocytes (%) (Auto) 12 % (0-9) 4 % (0-9) Eosinophils (%) (Auto) 2 % (0-3) 1 % (0-3) Basophils (%) (Auto) 1 % (0-3) 1 % (0-3) Neutrophils # (Auto) 6.5 x10^3uL (1.8-7.7) 6.8 x10^3uL (1.8-7.7) Lymphocytes # (Auto) 2.4 x10^3/uL (1.0-4.8) 1.3 x10^3/uL (1.0-4.8) Monocytes # (Auto) 1.2 x10^3/uL (0.0-1.1) 0.4 x10^3/uL (0.0-1.1) Eosinophils # (Auto) 0.2 x10^3/uL (0.0-0.7) 0.1 x10^3/uL (0.0-0.7) Basophils # (Auto) 0.1 x10^3/uL (0.0-0.2) 0.1 x10^3/uL (0.0-0.2) Prothrombin Time 12.3 SEC (11.7-14.0) Prothromb Time International Ratio 0.9 (0.8-1.1) Sodium Level 143 mmol/L (136-145) 145 mmol/L (136-145) Potassium Level 3.0 mmol/L (3.5-5.1) 3.3 mmol/L (3.5-5.1) Chloride Level 103 mmol/L (98-107) 106 mmol/L (98-107) Carbon Dioxide Level 29 mmol/L (21-32) 26 mmol/L (21-32) Anion Gap 11 (6-14) 13 (6-14) Blood Urea Nitrogen 11 mg/dL (7-20) 10 mg/dL (7-20) Creatinine 0.8 mg/dL (0.6-1.0) 0.6 mg/dL (0.6-1.0) Estimated GFR (Cockcroft-Gault) 70.5 98.3 BUN/Creatinine Ratio 14 (6-20) Glucose Level 122 mg/dL (70-99) 139 mg/dL (70-99) Calcium Level 9.5 mg/dL (8.5-10.1) 8.5 mg/dL (8.5-10.1) Magnesium Level 2.0 mg/dL (1.8-2.4) Total Bilirubin 0.3 mg/dL (0.2-1.0) Aspartate Amino Transf (AST/SGOT) 27 U/L (15-37) Alanine Aminotransferase (ALT/SGPT) 34 U/L (14-59) Alkaline Phosphatase 93 U/L (46-116) Troponin I Quantitative < 0.017 ng/mL (0.000-0.055) Total Protein 7.5 g/dL (6.4-8.2) Albumin 3.4 g/dL (3.4-5.0) Albumin/Globulin Ratio 0.8 (1.0-1.7) Thyroid Stimulating Hormone (TSH) 2.013 uIU/mL (0.358-3.74) Urine Collection Type Unknown Urine Color Yellow Urine Clarity Clear Urine pH 6.0 Urine Specific [place] 1.010 Urine Protein Negative mg/dL (NEG-TRACE) Urine Glucose (UA) Negative mg/dL (NEG) Urine Ketones (Stick) Negative mg/dL (NEG) Urine Blood Negative (NEG) Urine Nitrite Negative (NEG) Urine Bilirubin Negative (NEG) Urine Urobilinogen Dipstick 0.2 mg/dL (0.2 mg/dL) Urine Leukocyte Esterase Negative (NEG) Urine RBC Occ /HPF (0-2) Urine WBC Occ /HPF (0-4) Urine Squamous Epithelial Cells Many /LPF Urine Bacteria Few /HPF (0-FEW) Glucose (Fingerstick) 197 mg/dL (70-99) Test 10/21/18 12:03 Glucose (Fingerstick) 180 mg/dL (70-99) Brief Hospital Course Very pleasant 72-year-old white female with no assistive device, lives at home with family, Sunday acute onset of left-sided facial droop and left-sided drooping of the left eye. No other symptoms. Neuro exam is nonfocal. Admitted henceforth. Blood pressure good, blood work negative. 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 Seen by neurology again today. Patient will be more comfortable having an MRI done. Ordering that. 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 Condition at Discharge: Improved, Stable Disposition/Orders: D/C to Home Scheduled Amlodipine Besylate (Amlodipine Besylate) 5 Mg Tablet, 5 MG PO DAILY for high blood pressure, (Reported) Entered as Reported by: KIMBERLY SOL on 10/20/182212 Last Action: New Order on 10/20/182212 by KIMBERLY SOL Aspirin (Aspir-Low) 81 Mg Tablet., 81 MG PO DAILY for blood thinner, (Reported ) Entered as Reported by: KIMBERLY SOL on 10/20/182212 Last Action: New Order on 10/20/182212 by KIMBERLY SOL Atenolol (Atenolol) 100 Mg Tablet, 100 MG PO DAILY for BP, (Reported) Entered as Reported by: KIMBERLY SOL on 10/20/182212 Last Action: New Order on 10/20/182212 by KIMBERLY SOL Metformin Hcl (Metformin Hcl) 500 Mg Tablet, 500 MG PO BIDWMEALS for ANTI- DIABETIC, Ref 0 (Reported) Entered as Reported by: KIMBERLY SOL on 10/20/182212 Last Action: New Order on 10/20/182212 by KIMBERLY SOL Omeprazole (Omeprazole) 20 Mg Capsule., 20 MG PO DAILY for heart burn, ( Reported) Entered as Reported by: KIMBERLY SOL on 10/20/182212 Last Action: New Order on 10/20/182212 by KIMBERLY SOL Prednisone (Prednisone ) 10 Mg Tablet, 50 MG PO DAILY for bells palsy MDD 1 for 7 Days, #35 Prescribed by: DEAN KENNEDY on 10/21/18951 Rosuvastatin Calcium (Crestor) 10 Mg Tablet, 10 MG PO DAILY for FOR CHOLESTEROL , #30 Ref 0 (Reported) Entered as Reported by: KIMBERLY SOL on 10/20/182212 Last Action: New Order on 10/20/182212 by KIMBERLY SOL Sitagliptin Phosphate (Januvia) 100 Mg Tablet, 100 MG PO DAILY for diabetes, ( Reported) Entered as Reported by: KIMBERLY SOL on 10/20/182212 Last Action: New Order on 10/20/182212 by KIMBERLY SOL Valacyclovir Hcl (Valacyclovir) 500 Mg Tablet, 1,000 MG PO BID for herpes MDD 1 , #14 Prescribed by: DEAN KENNEDY on 10/21/1852 Scheduled PRN Polyvinyl Alcohol (Artificial Tears) 15 Ml Drops, 1 DROP OU PRN Q15MIN PRN for DRY EYE MDD 1 for 7 Days Prescribed by: DEAN KENNEDY on 10/21/1852 DEAN KENNEDY MD Oct 21, 2018 12:56
--- NOTE | 2018-10-21 14:37 | PDOC ---
PROGRESS NOTES Assessment Assessment IMPRESSION: Left side hearing decrease x 1 week. Left side facial numbness and weakness x 2 days. Headaches. Right side mouth drooping? DM. HTN. HLD. GERD. Breast cancer in 2000 or 2002. RECOMMENDATIONS/PLAN: Continue Valacyclovir. Continue Prednisone. BP control. Brain MRI w/wo contrast to help rule out pontine-cerebellar triangle etiology. Treat medical diseases. Control hyperglycemia. Discussed with her family at bedside on 10/21/18. Past Medical History Diabetes GERD. HTN. HLD. Past Surgical History No pertinent history Family History Non contributory. Allergies Coded Allergies: shellfish derived (Verified Allergy, Unknown, 10/20/18) Social History Smoke: No ALCOHOL: none Drugs: None MEDICATIONS: Refer to MAR REVIEW OF SYSTEMS: She has a minor headache. She has had some burning of her left eye. She has had diminished hearing and fullness of her left ear. She has had some soreness in her throat. She has not had shortness of breath. She had chest pain associated with a cough, but it is better. She does not have abdominal pain. She does not have bone or joint pain. There has been no fever or rash. Has had some loose stools with the antibiotic. She does not have any genitourinary complaint. She does not complain of numbness or weakness. She does not complain of easy bruising, bleeding or swelling. She does not have any psychiatric concerns. PHYSICAL EXAMINATION: General appearance in subacute distress. HEENT: Normocephalic and nontraumatic. Eyes, nose, ears, and throat are unremarkable. Left side hearing decrease for 1 week. Neck is supple. No lymphadenopathy. No bruits are heard over the carotid artery. No Crepitus. Cardiovascular: S1, S2, regular rate and rhythm. Pulmonary: Clear to auscultation bilaterally. Abdomen: Bowel sounds are positive. Abdomen is soft, nontender, and nondistended. Extremities: No rash, lesions, or edema. No restriction of range of motion NEUROLOGICAL EXAMINATION: Alert. Oriented to time, place and person. PERRL. EOMI. CN: Left side VII palsy. Muscle tone: within normal. Muscle strength: 5 DTR: 1+ Plantar reflex: Flexor response bilaterally Gait: not examined in bed. Sensory exam: no abnormal findings, but she complained numbness in her left side of face. No cerebellar signs elicited. F-T-N test fine. Objective Objective Vital Signs Date Time Temp Pulse Resp B/P (MAP) Pulse Ox O2 Delivery O2 Flow Rate FiO2 10/21/18 11:59 97.7 99 19 142/70 (94) 95 Room Air 97.7 Intake and Output 10/21/18 07:00 Intake Total 50 ml Balance 50 ml Intake Oral 50 ml # Voids 2 Vitals Signs Vitals VS - Last 72 Hours, by Label Date Time Temp Pulse Resp B/P (MAP) Pulse Ox O2 Delivery O2 Flow Rate FiO2 10/21/18 11:59 97.7 99 19 142/70 (94) 95 Room Air 97.7 10/21/18 08:00 Room Air 10/21/18 07:05 97.8 89 18 139/79 (99) 95 Room Air 97.8 10/21/18 03:55 98.9 87 148/79 (102) 97 Room Air 98.9 10/20/18 22:39 97.6 74 20 174/81 (112) 93 Room Air 97.6 10/20/18 21:19 62 16 96 10/20/18 21:04 70 16 97 10/20/18 20:45 70 16 97 10/20/18 20:20 69 18 96 10/20/18 19:48 74 16 96 10/20/18 19:35 97.7 79 18 191/79 (116) 100 Room Air 97.7 Laboratory Laboratory Laboratory Tests Test 10/20/18 19:40 10/20/18 20:43 10/21/18 02:45 10/21/18 07:05 White Blood Count 10.5 x10^3/uL (4.0-11.0) 8.6 x10^3/uL (4.0-11.0) Red Blood Count 4.66 x10^6/uL (3.50-5.40) 4.34 x10^6/uL (3.50-5.40) Hemoglobin 13.2 g/dL (12.0-15.5) 12.3 g/dL (12.0-15.5) Hematocrit 40.1 % (36.0-47.0) 37.2 % (36.0-47.0) Mean Corpuscular Volume 86 fL (79-100) 86 fL (79-100) Mean Corpuscular Hemoglobin 28 pg (25-35) 28 pg (25-35) Mean Corpuscular Hemoglobin Concent 33 g/dL (31-37) 33 g/dL (31-37) Red Cell Distribution Width 14.1 % (11.5-14.5) 13.9 % (11.5-14.5) Platelet Count 346 x10^3/uL (140-400) 307 x10^3/uL (140-400) Neutrophils (%) (Auto) 62 % (31-73) 79 % (31-73) Lymphocytes (%) (Auto) 23 % (24-48) 15 % (24-48) Monocytes (%) (Auto) 12 % (0-9) 4 % (0-9) Eosinophils (%) (Auto) 2 % (0-3) 1 % (0-3) Basophils (%) (Auto) 1 % (0-3) 1 % (0-3) Neutrophils # (Auto) 6.5 x10^3uL (1.8-7.7) 6.8 x10^3uL (1.8-7.7) Lymphocytes # (Auto) 2.4 x10^3/uL (1.0-4.8) 1.3 x10^3/uL (1.0-4.8) Monocytes # (Auto) 1.2 x10^3/uL (0.0-1.1) 0.4 x10^3/uL (0.0-1.1) Eosinophils # (Auto) 0.2 x10^3/uL (0.0-0.7) 0.1 x10^3/uL (0.0-0.7) Basophils # (Auto) 0.1 x10^3/uL (0.0-0.2) 0.1 x10^3/uL (0.0-0.2) Prothrombin Time 12.3 SEC (11.7-14.0) Prothromb Time International Ratio 0.9 (0.8-1.1) Sodium Level 143 mmol/L (136-145) 145 mmol/L (136-145) Potassium Level 3.0 mmol/L (3.5-5.1) 3.3 mmol/L (3.5-5.1) Chloride Level 103 mmol/L (98-107) 106 mmol/L (98-107) Carbon Dioxide Level 29 mmol/L (21-32) 26 mmol/L (21-32) Anion Gap 11 (6-14) 13 (6-14) Blood Urea Nitrogen 11 mg/dL (7-20) 10 mg/dL (7-20) Creatinine 0.8 mg/dL (0.6-1.0) 0.6 mg/dL (0.6-1.0) Estimated GFR (Cockcroft-Gault) 70.5 98.3 BUN/Creatinine Ratio 14 (6-20) Glucose Level 122 mg/dL (70-99) 139 mg/dL (70-99) Calcium Level 9.5 mg/dL (8.5-10.1) 8.5 mg/dL (8.5-10.1) Magnesium Level 2.0 mg/dL (1.8-2.4) Total Bilirubin 0.3 mg/dL (0.2-1.0) Aspartate Amino Transf (AST/SGOT) 27 U/L (15-37) Alanine Aminotransferase (ALT/SGPT) 34 U/L (14-59) Alkaline Phosphatase 93 U/L (46-116) Troponin I Quantitative < 0.017 ng/mL (0.000-0.055) Total Protein 7.5 g/dL (6.4-8.2) Albumin 3.4 g/dL (3.4-5.0) Albumin/Globulin Ratio 0.8 (1.0-1.7) Thyroid Stimulating Hormone (TSH) 2.013 uIU/mL (0.358-3.74) Urine Collection Type Unknown Urine Color Yellow Urine Clarity Clear Urine pH 6.0 Urine Specific [place] 1.010 Urine Protein Negative mg/dL (NEG-TRACE) Urine Glucose (UA) Negative mg/dL (NEG) Urine Ketones (Stick) Negative mg/dL (NEG) Urine Blood Negative (NEG) Urine Nitrite Negative (NEG) Urine Bilirubin Negative (NEG) Urine Urobilinogen Dipstick 0.2 mg/dL (0.2 mg/dL) Urine Leukocyte Esterase Negative (NEG) Urine RBC Occ /HPF (0-2) Urine WBC Occ /HPF (0-4) Urine Squamous Epithelial Cells Many /LPF Urine Bacteria Few /HPF (0-FEW) Vitamin B12 Level 481 pg/mL (247-911) Glucose (Fingerstick) 197 mg/dL (70-99) Test 10/21/18 12:03 Glucose (Fingerstick) 180 mg/dL (70-99) Medication Medications Current Medications Acetaminophen (Tylenol) 500 mg PRN Q6HRS PRN PO MILD PAIN / TEMP; Start at 10:00 Acetaminophen/ Codeine Phosphate (Tylenol #3) 1 tab PRN Q6HRS PRN PO MODERATE PAIN; Start 10/21/18 at 10:00 Artificial Tears (Artificial Tears) 1 drop PRN Q15MIN PRN OU DRY EYE Last administered on 10/21/18at 00:30; Start 10/20/18 at 23:15 Aspirin (Aspirin) 300 mg 1X STAT NV Last administered on 10/20/18at 20:47; Start 10/20/18 at 20:30; Stop 10/20/18 at 20:32; Status DC Dextrose (Dextrose 50%-Water Syringe) 12.5 gm PRN Q15MIN PRN IV SEE COMMENTS; Start 10/21/18 at 10:00 Insulin Human Lispro (HumaLOG) 0-7 UNITS TIDWMEALS SQ Last administered on 10/21at 12:22; Start 10/21/18 at 12:00 Ondansetron HCl (Zofran Odt) 4 mg PRN Q6HRS PRN PO NAUSEA/VOMITING; Start 10/21 at 10:00 Ondansetron HCl (Zofran) 4 mg PRN Q6HRS PRN IV NAUSEA/VOMITING; Start 10/21/18 at 10:00 Ondansetron HCl (Zofran) 4 mg PRN Q8HRS PRN IV NAUSEA/VOMITING; Start 10/20/18 at 21:00; Stop 10/21/18 at 20:59 Prednisone (Prednisone) 50 mg DAILY PO Last administered on 10/21/18at 08:19; Start 10/20/18 at 23:30; Stop 10/26/18 at 23:29 Sodium Chloride 1,000 ml @ 100 mls/hr Q10H IV Last administered on 10/21/18at 08:18; Start 10/20/18 at 21:00; Stop 10/21/18 at 20:59 Valacyclovir HCl (Valtrex) 1,000 mg BID PO Last administered on 10/21/18at 08:19 ; Start 10/20/18 at 23:30; Stop 10/26/18 at 23:29 Comment Review of Relevant I have reviewed the following items janice (where applicable) has been applied. MOR ANTHONY MD Oct 21, 2018 14:37
[2018-10-21] MEDS ORDERED: GADOBUTROL 7.5 MMOL/7.5 ML VIAL IV ONE (15:00)
--- NOTE | 2018-10-21 15:58 | RAD ---
EXAMINATION: Magnetic resonance imaging (MRI) of the brain and brainstem without and with contrast 10/21/2018 12:49 PM HISTORY: Left-sided hearing decrease. Left-sided 7th nerve palsy and facial numbness. Headaches. TECHNIQUE: Multiplanar multi-weighted MRI of the brain and brainstem was performed without and with intravenous contrast using the general brain protocol. Contrast information: 5 mL Gadolinium based contrast COMPARISON: None available. FINDINGS: The scalp and calvarium are normal. The superior sagittal sinus demonstrates normal venous flow. The corpus callosum is normal in shape and signal intensity. The posterior fossa is unremarkable. The pituitary and sella are normal. Brainstem is normal in appearance. There is abnormal morphology of the tip of the dens with suggestion of erosive changes. A low T1 signal areas identified at the tip of the dens and underlying mass is a differential consideration. Alternatively, inflammatory arthropathy may have similar appearance. Diffusion weighted images reveal no hyperintensities to suggest acute cerebral infarction. The susceptibility weighted sequences reveal no evidence of acute or chronic hemorrhage. The ventricles are normal in size and position without evidence of hydrocephalus.. There are T2/FLAIR signal hyperintense foci in the periventricular and subcortical white matter most suggestive of mild chronic small vessel ischemic changes. There are no areas of abnormal contrast enhancement. The paranasal sinuses are normal. There is a left mastoid effusion. The orbits appear normal. Normal flow voids are demonstrated in the carotid arteries and basilar artery. IMPRESSION: There is a left mastoid effusion. Correlate for signs and symptoms of mastoiditis. There may be minimal fluid within the middle ear. No evidence for acute or subacute ischemia. There are T2/FLAIR signal hyperintense foci in the periventricular and subcortical white matter most suggestive of mild chronic small vessel ischemic changes. Electronically signed by: Yodit Cuellar MD (10/21/2018 3:55 PM) [id number]
--- NOTE | 2018-10-21 16:30 | NUR ---
Dr. Hernandez notified Bhargavi, RN that patient MRI showed Left mastoiditis and patient would need to go home on antibiotics and f/u with PCP but will defer this to primary doctor. Notified Dr. Rockwell, who had this RN call in a medication to patient perferred pharmacy, [facility] in [place], [place] at [phone]. This RN called in Amoxicillin 500mg PO TID for 21 days, no refills. Spoke with Jatinder at [facility]. Notified patient of this plan and patient verbalized understanding and is willing to discharge.
--- NOTE | 2018-10-21 17:25 | NUR ---
Discharge Note: NICOLE GOMEZ [address] [place] [address] Discharge instructions and discharge home medications reviewed with Patient and a copy given. All questions have been answered and understanding verbalized. The following instructions and handouts were given: f/u with PCP within one week. F/U with Dr. Rinaldi in 4-6 weeks. Discontinued lines and drains: Peripheral IV intact. Patient discharged to Home or Self Care with Spouse via Ambulated.
== END 2018-10-21 17:25 | disposition home or self-care (01) | DRG 74 ==
LOC: ER 18:48 → 6 SOUTH 20:51
PROVIDERS: ADMIT Family Medicine; ATTEND Family Medicine
DX: G51.0 Bell's palsy (principal); I10 Essential (primary) hypertension; E11.65 Type 2 diabetes mellitus with hyperglycemia; E78.5 Hyperlipidemia, unspecified; K21.9 Gastro-esophageal reflux disease without esophagitis; Z79.82 Long term (current) use of aspirin; Z79.84 Long term (current) use of oral hypoglycemic drugs; Z79.899 Other long term (current) drug therapy; Z85.3 Personal history of malignant neoplasm of breast; Z91.013 Allergy to seafood
CPT/HCPCS: 36415; 70450; 70553; 71045; 80048; 80053; 81001; 82607; 82962; 83735; 84443; 84484; 85025; 85610; 93005; A9585; J1815; J7030; J7512; 99285-25

== ENCOUNTER → 2019-05-06 | Outpatient (CLI) | payer MEDICARE, OTHER ==
[~2019-05-06] MED LIST: AMLO5TAB10 PO; ASPI81TA50 PO; ATEN100T PO; CRESTOR10 MG PO; METF500T16 PO; OMEP20CA10 PO; POLY15DR27 OU; PRED-220 PO; SITA100T PO; VALA500T PO
--- NOTE | 2019-05-06 12:01 | CARD ---
MR#: [id number] Date of Study: 05/06/2019 Ordering Physician: SUDHAKAR NORTON, Referring Physician: SUDHAKAR NORTON, Tech: Diane Schmitt YANG APPROVED REPORT EXAM: Two-dimensional and M-mode echocardiogram with Doppler and color Doppler. Other Information Quality : GoodHR: 70bpm Rhythm : NSR INDICATION Aortic Valve Disease 2D DIMENSIONS RVDd2.9 (2.9-3.5cm)Left Atrium(2D)3.1 (1.6-4.0cm) IVSd1.0 (0.7-1.1cm)Aortic Root(2D)2.8 (2.0-3.7cm) LVDd3.9 (3.9-5.9cm)LVOT Diameter1.9 (1.8-2.4cm) PWd1.1 (0.7-1.1cm)LVDs2.7 (2.5-4.0cm) FS (%) 30.5 %SV37.8 ml LVEF(%)58.6 (>50%) M-Mode DIMENSIONS Left Atrium(MM)3.49 (2.5-4.0cm)Aortic Root2.55 (2.2-3.7cm) Aortic Valve AoV Peak Jose.329.8cm/sAoV VTI84.6cm AO Peak GR.43.5mmHgLVOT Peak Jose.78.1cm/s AO Mean GR.25mmHgAVA (VMAX)0.65cm2 JUSTIN (VTI)0.70cm2 Mitral Valve MV E Huwsxujz08.4cm/sMV DECEL [id number] MV A Tqbllker26.6cm/sE/A Ratio1.0 Pulmonary Valve PV Peak Gkkukphh56.4cm/s Tricuspid Valve TR P. Bjcpjrfn669wc/sRAP MRVRQVBD8mzLo TR Peak Gr.30naWnIGQE29riZh LEFT VENTRICLE The Left Ventricle is borderline dilated. There is normal left ventricular wall thickness. The left v entricular systolic function is normal and the ejection fraction is within normal range. The Ejection Fraction is 55-60%. There is normal LV segmental wall motion. Transmitral Doppler flow pattern is Gr digna I-abnormal relaxation pattern. RIGHT VENTRICLE The right ventricle is normal size. There is normal right ventricular wall thickness. The right ventr icular systolic function is normal. ATRIA The left atrium size is normal. The right atrium size is normal. The interatrial septum is intact wit h no evidence for an atrial septal defect or patent foramen ovale as noted on 2-D or Doppler imaging. AORTIC VALVE The aortic valve is moderately sclerotic. The aortic valve is probably bicuspid. Doppler and Color Fl ow revealed no significant aortic regurgitation. There is moderate to severe valvular aortic stenosis . Calculated aortic valve with maximum pressure gradient of 44 mmHg and mean pressure gradient of 25 mmHg. MITRAL VALVE The mitral valve is mildly thickened. There is no evidence of mitral valve prolapse. There is no mitr al valve stenosis. Doppler and Color-flow revealed trace mitral regurgitation. TRICUSPID VALVE The tricuspid valve is normal in structure and function. Doppler and Color Flow revealed trace tricus pid regurgitation. The PA pressure was estimated at 32 mmHg. There is no tricuspid valve prolapse or vegetation. There is no tricuspid valve stenosis. PULMONIC VALVE The pulmonary valve is normal in structure and function. Doppler and Color Flow revealed trace pulmon ic valvular regurgitation. There is no pulmonic valvular stenosis. GREAT VESSELS The aortic root is normal in size. The ascending aorta is normal in size. The IVC is normal in size a nd collapses >50% with inspiration. PERICARDIAL EFFUSION There is no evidence of significant pericardial effusion. Critical Notification Critical Value: No <Conclusion> The Left Ventricle is borderline dilated. The left ventricular systolic function is normal and the ejection fraction is within normal range. The Ejection Fraction is 55-60%. Doppler and Color Flow revealed no significant aortic regurgitation. There is moderate to severe valvular aortic stenosis. Calculated aortic valve with maximum pressure gradient of 44 mmHg and mean pressure gradient of 25 mm Hg. Doppler and Color-flow revealed trace mitral regurgitation. Doppler and Color Flow revealed trace tricuspid regurgitation. The PA pressure was estimated at 32 mmHg. Signed by : Sudhakar Norton MD Electronically Approved : 05/06/2019 12:00:33
== END | disposition home or self-care (01) ==
LOC: ECHO 09:56
PROVIDERS: ATTEND Internal Medicine Cardiovascular Disease
DX: I06.0 Rheumatic aortic stenosis (principal)
CPT/HCPCS: 93306

== ENCOUNTER → 2020-01-13 | Outpatient (CLI) | payer MEDICARE, OTHER ==
[~2020-01-13] MED LIST changes: -OMEP20CA10 PO; +OMEP20CA16 PO; -VALA500T PO; +VALA500T9 PO
--- NOTE | 2020-01-13 14:04 | CARD ---
MR#: [id number] Date of Study: 01/13/2020 Ordering Physician: SUDHAKAR THOMPSON, Referring Physician: SUDHAKAR THOMPSON, Tech: Estela Polanco [facility] APPROVED REPORT EXAM: Two-dimensional and M-mode echocardiogram with Doppler and color Doppler. Other Information Quality : Good INDICATION Aortic Stenosis 2D DIMENSIONS RVDd2.4 (2.9-3.5cm)Left Atrium(2D)3.3 (1.6-4.0cm) IVSd0.8 (0.7-1.1cm)Aortic Root(2D)2.7 (2.0-3.7cm) LVDd4.3 (3.9-5.9cm)LVOT Diameter1.8 (1.8-2.4cm) PWd0.8 (0.7-1.1cm)LVDs2.8 (2.5-4.0cm) FS (%) 25.0 %SV52.4 ml LVEF(%)50.0 (>50%) Aortic Valve AoV Peak Jose.318.7cm/sAoV VTI80.8cm AO Peak GR.40.6mmHgLVOT Peak Jose.74.7cm/s AO Mean GR.24mmHg Mitral Valve MV E Uqqzcipf36.2cm/sMV DECEL AEKL252az MV A Kpgxxkjh40.7cm/sE/A Ratio0.9 Tricuspid Valve TR P. Iyqevetz292bt/sRAP ZQHMQAMX1cwPk TR Peak Gr.95kiTnADCT45qoXp Pulmonary Vein S1 Vydaxsjj21.7cm/sD2 Ehrppjys06.2cm/s LEFT VENTRICLE The left ventricle is normal size. There is normal left ventricular wall thickness. Left ventricle sy stolic function is normal. The Ejection Fraction is 55-60%. There is normal LV segmental wall motion. Transmitral Doppler flow pattern is Grade I-abnormal relaxation pattern. RIGHT VENTRICLE The right ventricle is normal size. The right ventricular systolic function is normal. ATRIA The left atrium size is normal. The right atrium size is normal. The interatrial septum is intact wit h no evidence for an atrial septal defect or patent foramen ovale as noted on 2-D or Doppler imaging. AORTIC VALVE The aortic valve is moderately sclerotic. Doppler and Color Flow revealed trace aortic regurgitation. Moderate aortic valve stenosis with maximum pressure gradient 41 mmHg and mean pressure gradient 24 mmHg. MITRAL VALVE The mitral valve is calcified but opens well. Mitral annular calcification is mild. There is no evide nce of mitral valve prolapse. There is no mitral valve stenosis. Doppler and Color-flow revealed trac e mitral regurgitation. TRICUSPID VALVE The tricuspid valve is normal in structure and function. Doppler and Color Flow revealed mild tricusp id regurgitation. The PA pressure was estimated at 33 mmHg. There is no tricuspid valve stenosis. PULMONIC VALVE The pulmonary valve is normal in structure and function. Doppler and Color Flow revealed no pulmonic valvular regurgitation. There is no pulmonic valvular stenosis. GREAT VESSELS The aortic root is normal in size. The ascending aorta is mildly dilated at 3.3 cm. The IVC is normal in size and collapses >50% with inspiration. PERICARDIAL EFFUSION There is no evidence of significant pericardial effusion. Critical Notification Critical Value: No <Conclusion> Left ventricle systolic function is normal. The Ejection Fraction is 55-60%. There is normal LV segmental wall motion. Transmitral Doppler flow pattern is Grade I-abnormal relaxation pattern. Moderate aortic valve stenosis with maximum pressure gradient 41 mmHg and mean pressure gradient 24 m mHg. Trace aortic regurgitation. Trace mitral regurgitation. Mild tricuspid regurgitation. The PA pressure was estimated at 33 mmHg. There is no evidence of significant pericardial effusion. Signed by : Joni Frazier, Electronically Approved : 01/13/2020 14:04:09
== END | disposition home or self-care (01) ==
LOC: ECHO 10:35
PROVIDERS: ATTEND Internal Medicine Cardiovascular Disease
DX: I08.3 Combined rheumatic disorders of mitral, aortic and tricuspid valves (principal); I70.0 Atherosclerosis of aorta
CPT/HCPCS: 93306

== ENCOUNTER 2020-10-14 19:16 | Emergency (ER) | payer MEDICARE, OTHER ==
[~2020-10-14] VITALS: Ht 142.2 cm; Wt 51.8 kg
[~2020-10-14 19:16] MED LIST changes: +AMLO-186 PO; -AMLO5TAB10 PO
--- NOTE | 2020-10-14 20:26 | PHYS DOC ---
Past Medical History Past Medical History: Cancer, Diabetes-Type II, GERD, High Cholesterol, H ypertension Additional Past Medical Histor: BREAST CA, HEART MURMUR, RIGHT SHOULDER ROTATOR CUFF Past Surgical History: Appendectomy, Cancer Surgery, , Hysterectomy Additional Past Surgical Histo: L. MASTECTOMY Smoking Status: Never Smoker Alcohol Use: None Drug Use: None General Adult EDM: Chief Complaint: MULTIPLE COMPLAINTS HPI: HPI: Patient is a 74 year old female with past medical history of hypertension, hype rlipidemia, diabetes mellitus type 2, breast cancer status postmastectomy and chemotherapy in 2001, presents for 4-day history of blood in her stool, dizziness, headache, shortness of air. Patient denies any recent exposure to COVID-19, denies any recent sick contact. Colonoscopy last year has no positive finding. Reports that starting on Sunday her stool became dark and brown, and when she wipes she saw a spot of blood on the tissue. After her bowel movement today she had blood on her tissue as well. In addition patient reports dizziness when she get up from sitting position rapidly starting on Sunday, she has some pressure around her frontal region. And the headache is not bothering her right now. She has some chronic cough in the morning, she feels slightly winded than usual, but is able to breath fine at rest and with regular ambulation. Patient denies any fever, chills, chest pain, constipation, change in urination, and numbness and tingling to hands and feet. Patient is the main historian. Review of Systems: Review of Systems: Review of systems: Constitutional symptoms- No fever, no chills. Eyes- No Discharge, No Visual Loss Respiratory symptoms-ports morning dry cough. Cardiovascular Systems; reports she has a murmur, and has dizziness if she get up from a chair too fast . no chest pain, No Palpitations, No syncope Gastrointestinal symptoms: NO abdominal pain, reports nausea, no vomiting. Reports having brown dark stool, and blood on the tissue after wiping. Genitourinary symptoms: No dysuria. Musculoskeletal symptoms: No back pain No extremity pain. NEUROLOGICAL Symptoms: No headache, no generalized weakness; no focal weakness Heart Score: C/O Chest Pain: No Risk Factors: Risk Factors: DM, Current or recent (<one month) smoker, HTN, HLP, family history of CAD, obesity. Risk Scores: Score 0 - 3: 2.5% MACE over next 6 weeks - Discharge Home Score 4 - 6: 20.3% MACE over next 6 weeks - Admit for Clinical Observation Score 7 - 10: 72.7% MACE over next 6 weeks - Early Invasive Strategies Allergies: Allergies: Allergies Coded Allergies Type Severity Reaction Last Updated Verified shellfish derived Allergy Unknown 10/20/18 Yes Physical Exam: PE: General: alert, no acute distress. Skin: warm, dry and intact. Head:: Normocephalic, atraumatic. Neck: Trachea midline. Eyes: EOMI, Normal conjunctiva, No drainage CARDIOVASCULAR: Regular rate and rhythm RESPIRATORY: No respiratory distress Back: Full range of motion. MUSCULOSKELETAL: Full range of motion of bilateral upper and lower extremities. GASTROINTESTINAL: Abdomen soft without rebound or guarding.-- extrenal hemorroid. 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 No neurological deficits observed Psychiatric: Cooperative. Normal judgment Current Patient Data: Vital Signs: Vital Signs Date Time Temp Pulse Resp B/P (MAP) Pulse Ox O2 Delivery O2 Flow Rate FiO2 10/14/20 19:26 98.0 74 26 175/79 (111) 98 Room Air 98.0 EKG: EKG: EKG performed at 2024 heart rate [address] elevation no ST depression right bundle branch block no acute AL [] Radiology/Procedures: Radiology/Procedures: [] Impression: FINDINGS: Lower Chest: Minimal dependent opacities in the lower lobes likely atelectasis or developing consolidation. Abdomen and Pelvis: Of note the entire upper abdomen is not entirely included in the [id number], for example portions of the liver are excluded. Spleen, adrenal glands and pancreas are grossly unremarkable. Symmetric nephrograms. No focal renal lesion. No hydronephrosis. No hydroureter. Bladder is unremarkable. Moderate colonic stool content is seen. Appendix is not seen. Colonic div erticulosis. No evidence for acute diverticulitis. No small or large bowel dilatation. No bowel obstruction. No abdominal or pelvic ascites. No abdominal or pelvic lymphadenopathy. Retroaortic left renal vein. Dense aortobiiliac calcifications are seen. Aorta is normal in caliber. Bones: Degenerative changes of the spine are seen. No aggressive osseous lesion. IMPRESSION: Colonic diverticulosis without evidence for acute diverticulitis. Moderate colonic stool content. No bowel obstruction. Course & Med Decision Making: Course & Med Decision Making Pertinent Labs and Imaging studies reviewed. (See chart for details) [] Patient was evaluated for chief complaint. Work-up consisted of laboratory analysis and radiologic imaging. Results reviewed and discussed with patient. Patient's hemoglobin level within normal range. Patient CT imaging no acute abnormalities. Patient Hemoccult positive. Patient safe for discharge her vital signs stable patient will be referred to GI. Lisandra Disclaimer: Lisandra Disclaimer: This electronic medical record was generated, in whole or in part, using a voice recognition dictation system. Departure Departure Impression: Primary Impression: Rectal bleeding Disposition: 01 DC HOME SELF CARE/HOMELESS Condition: STABLE Referrals: MARY MARIO MD (PCP) LEATHA PARSON MD Patient Instructions: Rectal Bleeding KEHINDE DESHPANDE I DO Oct 14, 2020 20:26
--- NOTE | 2020-10-14 20:44 | EKG ---
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
[2020-10-14 20:59] LABS: BASO # 0.1 x10^3/uL (0.0-0.2); BASO % 1 % (0-3); EOS # 0.3 x10^3/uL (0.0-0.7); EOS % 3 % (0-3); HEMATOCRIT 36.8 % (36.0-47.0); HEMOGLOBIN 12.3 g/dL (12.0-15.5); LYMPH # 2.7 x10^3/uL (1.0-4.8); LYMPH % 27 % (24-48); MEAN CORPUSCULAR HEMOGLOBIN 29 pg (25-35); MEAN CORPUSCULAR HGB CONC 33 g/dL (31-37); MEAN CORPUSCULAR VOLUME 86 fL (79-100); MONO # 1.2 x10^3/uL (0.0-1.1); MONO % 11 % (0-9); NEUT # 5.9 x10^3/uL (1.8-7.7); NEUT % 59 % (31-73); PLATELET COUNT 311 x10^3/uL (140-400); RED BLOOD COUNT 4.29 x10^6/uL (3.50-5.40); RED CELL DISTRIBUTION WIDTH 13.6 % (11.5-14.5); WHITE BLOOD COUNT 10.1 x10^3/uL (4.0-11.0)
[2020-10-14 21:10] LABS: CALCIUM 9.6 mg/dL (8.5-10.1); CREATININE 1.1 mg/dL (0.6-1.0); GFR 48.6; POTASSIUM 3.4 mmol/L (3.5-5.1)
[2020-10-14 21:15] LABS: ALBUMIN 3.8 g/dL (3.4-5.0); ALBUMIN/GLOBULIN RATIO 1.1 (1.0-1.7); TOTAL BILIRUBIN 0.2 mg/dL (0.2-1.0); TOTAL PROTEIN 7.2 g/dL (6.4-8.2)
[2020-10-14] MEDS ORDERED: IOHEXOL 300 MG/ML 100ML VIAL. IV ONE (21:30)
--- NOTE | 2020-10-14 22:03 | RAD ---
EXAM: CT Abdomen and Pelvis with IV contrast CLINICAL HISTORY: blood in stool COMPARISON: none TECHNIQUE: Helical CT of the abdomen and pelvis was performed following the administration of intrave nous contrast. Axial, coronal and sagittal reformatted images were generated. PQRS compliance statement - One or more of the following individualized dose reduction techniques wer e utilized for this study: 1. Automated exposure control 2. Adjustment of the mA and/or kV according to patient size 3. Use of iterative reconstruction technique FINDINGS: Lower Chest: Minimal dependent opacities in the lower lobes likely atelectasis or developing consolidation. Abdomen and Pelvis: Of note the entire upper abdomen is not entirely included in the [id number], for example portions of the liver are excluded. Spleen, adrenal glands and pancreas are grossly unremarkable. Symmetric ne phrograms. No focal renal lesion. No hydronephrosis. No hydroureter. Bladder is unremarkable. Moderate colonic stool content is seen. Appendix is not seen. Colonic diverticulosis. No evidence for acute diverticulitis. No small or large bowel dilatation. No bowel obstruction. No abdominal or pelv ic ascites. No abdominal or pelvic lymphadenopathy. Retroaortic left renal vein. Dense aortobiiliac c alcifications are seen. Aorta is normal in caliber. Bones: Degenerative changes of the spine are seen. No aggressive osseous lesion. IMPRESSION: Colonic diverticulosis without evidence for acute diverticulitis. Moderate colonic stool content. No bowel obstruction. Electronically signed by: Leonard Long MD (10/14/2020 10:01 PM) A[place]ANDRA
[2020-10-14 22:05] LABS: FECAL OB PT POSITIVE (NEG)
[2020-10-14 23:04] VITALS: BP 165/79
== END 2020-10-14 23:10 | disposition home or self-care (01) ==
LOC: ER 19:16
DX: K62.5 Hemorrhage of anus and rectum (principal); R31.9 Hematuria, unspecified; R42 Dizziness and giddiness; R51.9 Headache, unspecified; E11.9 Type 2 diabetes mellitus without complications; K21.9 Gastro-esophageal reflux disease without esophagitis; E78.00 Pure hypercholesterolemia, unspecified; I10 Essential (primary) hypertension; Z85.3 Personal history of malignant neoplasm of breast; Z90.89 Acquired absence of other organs; Z90.710 Acquired absence of both cervix and uterus; Z98.890 Other specified postprocedural states; Z91.013 Allergy to seafood
CPT/HCPCS: 36415; 74177; 80053; 82274; 84484; 85025; 93005; 99285; Q9967

== ENCOUNTER → 2020-12-29 | Outpatient (CLI) | payer MEDICARE, OTHER ==
--- NOTE | 2020-12-29 15:47 | CARD ---
MR#: [id number] Date of Study: 12/29/2020 Ordering Physician: BULL NORTON, Referring Physician: BULL NORTON, Tech: Alma Be [facility] APPROVED REPORT EXAM: Two-dimensional and M-mode echocardiogram with Doppler and color Doppler. Other Information Quality : GoodHR: 57bpm Rhythm : NSR INDICATION CVA/TIA Aortic Valve Disease RISK FACTORS Hypertension 2D DIMENSIONS RVDd1.8 (2.9-3.5cm)Left Atrium(2D)3.2 (1.6-4.0cm) IVSd1.0 (0.7-1.1cm)Aortic Root(2D)2.8 (2.0-3.7cm) LVDd4.0 (3.9-5.9cm)LVOT Diameter1.8 (1.8-2.4cm) PWd0.9 (0.7-1.1cm)LVDs2.5 (2.5-4.0cm) FS (%) 37.8 %SV47.2 ml LVEF(%)68.5 (>50%) Aortic Valve AoV Peak Jose.338.4cm/sAoV VTI87.8cm AO Peak GR.45.8mmHgLVOT Peak Jose.73.5cm/s AO Mean GR.28mmHgAVA (VMAX)0.55cm2 Mitral Valve MV E Npnajgcw33.7cm/sMV DECEL VPFV445ld MV A Xbejyklx91.5cm/sE/A Ratio0.8 Pulmonary Valve PV Peak Resocbgh77.7cm/s Tricuspid Valve TR P. Fvzqlfls375fi/sRAP MQKVDTIH6ylEl TR Peak Gr.08voDwYXEU31xbNo Pulmonary Vein S1 Rnijdnfs97.0cm/sD2 Cyhnboob91.2cm/s PVa afdcvjbk51rbrb LEFT VENTRICLE The left ventricle is normal size. There is normal left ventricular wall thickness. Left ventricular systolic function is normal. The left ventricular ejection fraction is 55-60%. No regional wall motio n abnormalities noted. Tissue Doppler imaging reveals abnormal left ventricular diastolic dysfunction . No left ventricle thrombus noted on this study. There is no ventricular septal defect visualized. T here is no left ventricular aneurysm. There is no mass noted in the left ventricle. RIGHT VENTRICLE The right ventricle is normal size. There is normal right ventricular wall thickness. The right ventr icular systolic function is normal. ATRIA The left atrium is mildly dilated. The right atrium size is normal. The interatrial septum is intact with no evidence for an atrial septal defect or patent foramen ovale as noted on 2-D or Doppler imagi ng. AORTIC VALVE The aortic valve is severely calcified. No aortic regurgitation is present. There is moderate valvula r aortic stenosis. There is no aortic valvular vegetation. MITRAL VALVE The mitral valve is normal in structure and function. There is no evidence of mitral valve prolapse. There is no mitral valve stenosis. Doppler and Color-flow revealed mild mitral regurgitation. TRICUSPID VALVE The tricuspid valve is normal in structure and function. Doppler and Color Flow revealed mild to mode rate tricuspid regurgitation. PAP is 34 mmHg. There is no tricuspid valve prolapse or vegetation. The re is no tricuspid valve stenosis. PULMONIC VALVE The pulmonary valve is normal in structure and function. There is no pulmonic valvular regurgitation. There is no pulmonic valvular stenosis. GREAT VESSELS The aortic root is normal in size. The ascending aorta is normal in size. The pulmonary artery is nor mal. The IVC is normal in size and collapses >50% with inspiration. PERICARDIAL EFFUSION There is no pleural effusion. The pericardium appears normal. Critical Notification Critical Value: No <Conclusion> The left ventricle is normal size. Left ventricular systolic function is normal. The left ventricular ejection fraction is 55-60%. No aortic regurgitation is present. There is moderate valvular aortic stenosis. Doppler and Color-flow revealed mild mitral regurgitation. Doppler and Color Flow revealed mild to moderate tricuspid regurgitation. PAP is 34 mmHg. Signed by : Bull Norton MD Electronically Approved : 12/29/2020 15:46:42
== END ==
LOC: ECHO 09:37
PROVIDERS: ATTEND Internal Medicine Cardiovascular Disease
DX: I08.3 Combined rheumatic disorders of mitral, aortic and tricuspid valves (principal)
CPT/HCPCS: 93306